=== PATIENT | female | born 1945 | race Two or more races ===

== ENCOUNTER 2021-03-18 19:30 | Emergency (ER) | payer OTHER ==
[~2021-03-18] VITALS: Ht 162.6 cm; Wt 46.0 kg
[2021-03-18 21:00] LABS: HEMATOCRIT. 33.8 % (36.0-48.0); HEMOGLOBIN. 10.7 g/dL (12.0-16.0); MEAN CORPUSCULAR HEMOGLOBIN 23.5 pg (28.0-32.0); MEAN CORPUSCULAR VOLUME 74.2 fL (81.0-99.0); MEAN PLATELET VOLUME 9.7 fl (7.4-10.4); PLATELET 380 x1000/uL (130-400); RED BLOOD CELL COUNT 4.56 mill/uL (4.2-5.4); RED CELL DISTRIBUTION WIDTH 18.7 % (11.6-14.6)
[2021-03-18 21:07] LABS: CHLORIDE 106 mEq/L (98-107)
[2021-03-18 22:25] LABS: PLATELET ESTIMATE NORMAL
[2021-03-19 02:00] VITALS: BP 111/63
== END 2021-03-19 03:05 | disposition short-term general hospital (02) ==
LOC: ER 19:30
DX: N93.9 Abnormal uterine and vaginal bleeding, unspecified (principal); E86.0 Dehydration; I10 Essential (primary) hypertension; Z20.822 Contact with and (suspected) exposure to COVID-19
CPT/HCPCS: 36415; 71045; 76830; 76856; 80053; 85025; 86850; 86900; 87426; 93005; 99285